=== PATIENT | male | born 1960 | race American Indian/Alaskan Native ===

== ENCOUNTER 2016-02-28 22:30 | Emergency (ER) | payer MEDICARE, OTHER ==
[2016-02-28] MEDS ORDERED: PEPCID PO ONE (23:50)
[2016-02-28] MEDS ORDERED: DUONEB 0.5 MG-3 MG/3 ML SOLN IH ONE (23:50)
--- NOTE | 2016-02-29 00:16 | XRay Report ---
FINAL REPORT PROCEDURE: XR CHEST ROUTINE 2V TECHNIQUE: PA and lateral chest radiographs were obtained. CPT 71965 HISTORY: worsening cough heavy smoker COMPARISON: No prior studies are available for comparison. FINDINGS: Heart: Normal. Mediastinum/Vessels: Normal. Lungs/Pleural space: Normal. Bony thorax: No acute osseous abnormality. Other: IMPRESSION: Normal examination.
[2016-02-29 00:23] LABS: Basophils % (Auto) 0.8 % (0.0-1.8); Hematocrit 42.2 % (35.5-45.6); Mean Corpuscular HGB Conc 36 % (32-34); Mean Corpuscular Hemoglobin 33 pg (28-32); Mean Corpuscular Volume 92 fl (84-94); Platelet Count 168 K/mm3 (140-440); Red Cell Distribution Width 15.6 % (13.2-15.2); White Blood Count 5.7 K/mm3 (4.5-11.0)
[2016-02-29 00:44] LABS: Creatine Kinase MB 2.5 ng/mL (0.0-4.0)
[2016-02-29 00:45] LABS: Alanine Aminotransferase 22 units/L (7-56); Albumin 4.1 g/dL (3.9-5); Alkaline Phosphatase 88 units/L (35-129); BUN/Creatinine Ratio 6.66; Bilirubin,Total 0.3 mg/dL (0.1-1.2); Blood Urea Nitrogen 4 mg/dL (9-20); Calcium 8.7 mg/dL (8.4-10.2); Carbon Dioxide 19 mmol/L (22-30); Creatine Kinase 109 units/L (55-170); Glucose 179 mg/dL (75-100); Sodium 140 mmol/L (137-145); Total Protein 8.2 g/dL (6.3-8.2)
[2016-02-29 00:46] LABS: Chloride 98.9 mmol/L (98-107); Potassium 3.4 mmol/L (3.6-5.0)
--- NOTE | 2016-02-29 00:51 | Emergency Department Report ---
HPI - General Chief Complaint: Sore Throat Time Seen by Provider: 02/28/16 23:15 - HPI HPI: 55-year-old male past medical history alcoholic, EtOH abuse, smoker presents with complaint of 2-3 months of worsening cough and sore throat. Patient states he has fits of coughing with mild associated chest pain which is been worsening for 2-3 months. Patient states that the coughing is also making his throat sore. Patient denies any fever or chills no nausea or vomiting. Cough is dry nonproductive. Denies any pleuritic chest pain, denies any overt shortness of breath, denies any recent travel. States he drinks heavily and smokes heavily on a daily basis for 20+ years and has not had any medical attention in over 40 years. Patient accompanied by family, son and daughter-in- law who state that they're concerned that his cough is getting worse. Patient is ambulatory without assistance, awake alert and oriented 3, does not appear to be in acute distress no audible stridor or wheezing. Patient does not appear dyspneic. ED Past Medical Hx - Past Medical History Previous Medical History?: No - Surgical History Past Surgical History?: No - Social History Smoking Status: Current Every Day Smoker Substance Use Type: Alcohol - Medications Home Medications: Home Medications Medication Instructions Recorded Confirmed Last Taken Type Famotidine [Pepcid] 40 mg PO QHS #30 tablet 11/16/12 Unknown Rx ALBUTEROL Inhaler [Proair] 1 puff IH Q4H PRN #1 inha 02/29/16 Unknown Rx Azithromycin [Zithromax Z-ADEBAYO] 250 mg PO QDAY #6 tablet 02/29/16 Unknown Rx Chlorhexidine Mouthwash [Peridex] 118 ml MM BID #1 bottle 02/29/16 Unknown Rx Clindamycin [Clindamycin CAP] 300 mg PO Q8H #30 cap 02/29/16 Unknown Rx Famotidine [Pepcid] 20 mg PO BID #20 tablet 02/29/16 Unknown Rx Lansoprazole [Prevacid] 15 mg PO QDAY #14 cap 02/29/16 Unknown Rx ED Review of Systems ROS: Stated complaint: SORE THROAT Other details as noted in HPI Constitutional: denies: chills, fever Eyes: denies: eye pain, eye discharge, vision change ENT: throat pain. denies: ear pain Respiratory: cough. denies: shortness of breath, wheezing Cardiovascular: chest pain. denies: palpitations Endocrine: no symptoms reported Gastrointestinal: denies: abdominal pain, nausea, diarrhea Genitourinary: denies: urgency, dysuria Musculoskeletal: denies: back pain, joint swelling, arthralgia Skin: denies: rash, lesions Neurological: denies: headache, weakness, paresthesias Psychiatric: as per HPI, other (patient and drinks and smokes heavily on daily basis). denies: anxiety, depression Hematological/Lymphatic: denies: easy bleeding, easy bruising Physical Exam - Physical Exam Vital Signs: Vital Signs 02/28/16 02/29/16 22:42 00:38 Temperature 97.9 F Pulse Rate 99 H Pulse Rate [ 92 H Anterior Bilateral Throughout] Respiratory 20 Rate Respiratory 18 Rate [Anterior Bilateral Throughout] Blood Pressure 133/89 O2 Sat by Pulse 96 Oximetry General: General: Patient appears slightly disheveled, well nourished, in no distress. Oriented x 3, normal mood and affect .Ambulating without difficulty. Skin: Mottled skin appearance Head: Normocephalic, atraumatic, no visible or palpable masses, depressions, or scaring. Eyes: Visual acuity intact, conjunctiva clear, sclera non-icteric, EOM intact, PERRL, fundi have normal optic discs and vessels, no exudates or hemorrhages Ears: EACs clear, TMs translucent & mobile, ossicles nl appearance, hearing intact. Nose: No external lesions, mucosa non-inflamed, septum and turbinates normal Teeth/Gums: Peritonsillar disease, gingivitis, multiple large cavities Pharynx: Mucosa mildly, no tonsillar hypertrophy or exudate Neck: Supple, without lesions, bruits, or adenopathy, thyroid non-enlarged and non-tender Heart: No cardiomegaly or thrills; regular rate and rhythm, no murmur or gallop Lungs: Clear to auscultation and percussion Abdomen: Bowel sounds normal, no tenderness, organomegaly, masses, or hernia Back: Spine normal without deformity or tenderness, no CVA tenderness Musculoskeletal: Normal gait and station. No misalignment, asymmetry, crepitation, defects, tenderness, masses, effusions, decreased range of motion, instability, atrophy or abnormal strength or tone in the head, neck, spine, ribs , pelvis or extremities. Neurologic: CN 2-12 normal. Sensation to pain, touch, and proprioception normal. DTRs normal in upper and lower extremities. No pathologic reflexes. Psychiatric: Oriented X3, intact recent and remote memory, judgment and insight , normal mood and affect. Patient clinically does not seem intoxicated, able to follow commands, cooperative, fully lucid. ED Course Vital Signs 02/28/16 02/29/16 22:42 00:38 Temperature 97.9 F Pulse Rate 99 H Pulse Rate [ 92 H Anterior Bilateral Throughout] Respiratory 20 Rate Respiratory 18 Rate [Anterior Bilateral Throughout] Blood Pressure 133/89 O2 Sat by Pulse 96 Oximetry ED Medical Decision Making - Lab Data Result diagrams: 02/28/16 23:48 02/28/16 23:49 - Medical Decision Making A/P: Sore throat, cough, chest pain 1-chest x-ray within normal limits, EKG sinus rhythm rate of 70s, troponin negative, BMP within normal limits, CBC normal limits. patient states is been ongoing for 3 months 2-patient is chronic smoker and smokes over 2 packs a day for 20+ years possibly has undiagnosed COPD which may be resulting in cough. Patient also smokes and drinks daily which may result in GERD which may also be cause of his persistent cough. Will provide patient with prescription for albuterol inhaler , Pepcid, prevacid. Z-Adebayo. 3-to give patient referral to primary care and cardiology as he does not currently have any follow-up whatsoever. Patient states he has not had any medical attention in many years. I also gave patient information for dental clinics for his periodontal disease. 4-patient and his family are educated on risks of smoking, alcohol abuse and COPD. I informed patient that he should seek out alcohol rehabilitation, his family stated that they would help him with this issue. Patient denies any history of DTs or seizures when I asked him specifically. Patient discharged to the care of his family Critical care attestation.: If time is entered above; I have spent that time in minutes in the direct care of this critically ill patient, excluding procedure time. ED Disposition Clinical Impression: Sore throat, Cough, Smoking Chest pain Qualifiers: Chest pain type: unspecified Qualified Code(s): R07.9 - Chest pain, unspecified Disposition: DISCHARGED TO HOME OR SELFCARE Is pt being admited?: No Does the pt Need Aspirin: No Condition: Stable Instructions: Chest Pain (ED), Pharyngitis (ED), Cold Symptoms (ED), Chronic Cough (ED), Gastroesophageal Reflux Disease (ED), Diet for Ulcers and Gastritis (ED) Prescriptions: Clindamycin [Clindamycin CAP] 300 mg PO Q8H #30 cap Famotidine [Pepcid] 20 mg PO BID #20 tablet Chlorhexidine Mouthwash [Peridex] 118 ml MM BID #1 bottle Lansoprazole [Prevacid] 15 mg PO QDAY #14 cap ALBUTEROL Inhaler [Proair] 1 puff IH Q4H PRN #1 inha PRN Reason: Cough Azithromycin [Zithromax Z-ADEBAYO] 250 mg PO QDAY #6 tablet Referrals: [facility] [Outside] - 3-5 Days SHERLYN ALVARES MD [Staff Physician] - 3-5 Days [facility], [Primary Care Provider] - 3-5 Days LESLEY HEREDIA MD [Staff Physician] - 3-5 Days Time of Disposition: 01:06
[2016-02-29 01:00] LABS: Anion Gap 26 mmol/L; Bilirubin,Direct < 0.2 mg/dL (0-0.2); Bilirubin,Indirect 0.1 mg/dL
[2016-02-29 01:35] VITALS: BP 141/71
== END 2016-02-29 01:20 | disposition home or self-care (01) ==
LOC: ED 22:30
DX: J02.9 Acute pharyngitis, unspecified (principal); R05 Cough; R07.9 Chest pain, unspecified; F17.200 Nicotine dependence, unspecified, uncomplicated
CPT/HCPCS: 36415; 71020; 80048; 80074; 82550; 82553; 82805; 84484; 85025; 93005; 93010; 94640; 99284; G0480; 80320

== ENCOUNTER 2016-11-15 21:43 | Emergency (ER) | payer MEDICARE ==
[2016-11-15] MEDS ORDERED: NACL 0.9% 1000 ML 1,000 ML IV ONE (23:25)
[2016-11-15] MEDS ORDERED: ZOFRAN IV ONE (23:28)
[2016-11-15] MEDS ORDERED: DECADRON IV ONE (23:29)
[2016-11-15] MEDS ORDERED: NACL 0.9% 1000 ML 1,000 ML ONE (23:31)
--- NOTE | 2016-11-15 23:38 | Emergency Department Report ---
ED General Adult HPI - General Chief complaint: Skin/Abscess/Foreign Body Stated complaint: GENERAL ILLNESS Time Seen by Provider: 11/15/16 23:20 Source: patient, EMS Mode of arrival: Ambulatory Limitations: Physical Limitation - History of Present Illness Initial comments: Patient is a 56 years old male came today with difficulty breathing and unable to speak, going on for 1 week getting worst tonight. Patient showed me a letter from [facility] from the Otolaryngology, head and neck surgery department indicating that the patient has an advanced stage laryngeal cancer and they are trying to get in touch with him for his treatment plan. Patient currently denied fever. He stated that he has been nauseated. -: Gradual, week(s) Location: head, neck - Related Data Home Medications Medication Instructions Recorded Confirmed Last Taken No Known Home Medications [No 11/15/16 11/15/16 Unknown Reported Home Medications] Allergies Allergy/AdvReac Type Severity Reaction Status Date / Time Penicillins Allergy Unknown Verified 11/16/12 04:53 ED Review of Systems ROS: Stated complaint: GENERAL ILLNESS Other details as noted in HPI Comment: All other systems reviewed and negative Constitutional: denies: chills, fever ENT: throat pain Respiratory: shortness of breath. denies: cough, orthopnea Cardiovascular: palpitations. denies: chest pain, dyspnea on exertion Gastrointestinal: nausea. denies: abdominal pain, vomiting, diarrhea, constipation, hematemesis Genitourinary: denies: dysuria, frequency, hematuria Musculoskeletal: denies: back pain Skin: denies: rash Neurological: denies: headache, weakness, paresthesias ED Past Medical Hx - Past Medical History Previous Medical History?: No Additional medical history: Advanced laryngeal cancer - Surgical History Past Surgical History?: No - Social History Smoking Status: Current Every Day Smoker Substance Use Type: Alcohol - Medications Home Medications: Home Medications Medication Instructions Recorded Confirmed Last Taken Type No Known Home Medications [No 11/15/16 11/15/16 Unknown History Reported Home Medications] ED Physical Exam - General Limitations: Physical Limitation General appearance: alert, in no apparent distress - Eye Eye exam: Present: normal appearance - ENT ENT exam: Present: normal exam, normal orophraynx, mucous membranes dry - Neck Neck exam: Present: normal inspection, full ROM. Absent: tenderness, meningismus, lymphadenopathy, thyromegaly - Respiratory Respiratory exam: Present: decreased breath sounds. Absent: respiratory distress, wheezes, rales, rhonchi, stridor - Cardiovascular Cardiovascular Exam: Present: tachycardia. Absent: systolic murmur, diastolic murmur - GI/Abdominal GI/Abdominal exam: Present: soft. Absent: tenderness, guarding, rebound, mass, bruit, pulsatile mass - Extremities Exam Extremities exam: Present: normal inspection, normal capillary refill - Back Exam Back exam: Present: normal inspection. Absent: CVA tenderness (R), CVA tenderness (L) - Neurological Exam Neurological exam: Present: alert, oriented X3, CN II-XII intact, normal gait, reflexes normal. Absent: motor sensory deficit - Skin Skin exam: Present: warm, dry, intact. Absent: cyanosis, diaphoretic, erythema , petechiae, pallor ED Course Vital Signs 11/15/16 11/15/16 11/15/16 23:02 23:07 23:15 Temperature 98.4 F Pulse Rate 119 H 116 H 122 H Pulse Rate [ Posterior Bilateral Throughout] Respiratory 36 H 36 H 32 H Rate Respiratory Rate [Posterior Bilateral Throughout] Blood Pressure 180/111 191/169 Blood Pressure 180/111 [Left] O2 Sat by Pulse 97 98 97 Oximetry 11/15/16 11/16/16 11/16/16 23:30 00:12 00:28 Temperature Pulse Rate 114 H Pulse Rate [ 108 H 112 H Posterior Bilateral Throughout] Respiratory 14 Rate Respiratory 20 23 Rate [Posterior Bilateral Throughout] Blood Pressure 150/94 Blood Pressure [Left] O2 Sat by Pulse 99 Oximetry - Reevaluation(s) Reevaluation #1: 11/16/16 01:23 Patient stated that he is feeling better. ED Medical Decision Making - Lab Data Result diagrams: 11/15/16 23:48 11/15/16 23:48 - Radiology Data Radiology results: report reviewed - Medical Decision Making Discussed with Dr. Lee from [facility], he advised patient need to be transferred to [facility] ER and he will assess the patient over there. I spoke to Dr. Morales ER physician at [facility] Critical care attestation.: If time is entered above; I have spent that time in minutes in the direct care of this critically ill patient, excluding procedure time. ED Disposition Clinical Impression: Airway compromise, Laryngeal cancer Disposition: [id number]/TX-[id number] ANOTHER TYPE HLTHCARE Is pt being admited?: No Condition: Stable Referrals: PRIMARY CARE, [Primary Care Provider] - 3-5 Days
[2016-11-15] MEDS ORDERED: S2 RACEPINEPHRINE 2.25% IH ONE (23:44)
[2016-11-15] MEDS ORDERED: XOPENEX IH ONE (23:57)
[2016-11-15] MEDS ORDERED: ATROVENT IH ONE (23:57)
[2016-11-16 00:21] LABS: Basophils % (Auto) 0.8 % (0.0-1.8); Eosinophils % (Auto) 0.4 % (0.0-4.3); Hemoglobin 14.1 gm/dl (11.8-15.2); Mean Corpuscular HGB Conc 34 % (32-34); Mean Corpuscular Hemoglobin 30 pg (28-32); Mean Corpuscular Volume 88 fl (84-94); Platelet Count 190 K/mm3 (140-440); Red Blood Count 4.67 M/mm3 (3.65-5.03); Red Cell Distribution Width 14.9 % (13.2-15.2); White Blood Count 7.7 K/mm3 (4.5-11.0)
[2016-11-16 00:29] LABS: INR 0.98 (0.87-1.13)
[2016-11-16 00:30] LABS: Partial Thromboplastin Time 28.6 Sec. (24.2-36.6)
[2016-11-16] MEDS ORDERED: NACL ONE (00:39)
[2016-11-16 00:44] LABS: Alanine Aminotransferase 43 units/L (7-56); Albumin 4.1 g/dL (3.9-5); Albumin/Globulin Ratio 0.9 %; Alkaline Phosphatase 87 units/L (35-129); Anion Gap 32 mmol/L; BUN/Creatinine Ratio 8; Blood Urea Nitrogen 6 mg/dL (9-20); Carbon Dioxide 18 mmol/L (22-30); Chloride 80.4 mmol/L (98-107); Glucose 119 mg/dL (75-100); Potassium 3.7 mmol/L (3.6-5.0); Sodium 127 mmol/L (137-145); Total Protein 8.5 g/dL (6.3-8.2)
--- NOTE | 2016-11-16 02:05 | Cat Scan Report ---
FINAL REPORT PROCEDURE: CT NECK W CON TECHNIQUE: Computerized axial tomography of the soft tissue neck was performed following the IV injection of iodinated nonionic contrast. HISTORY: Difficulty breathing, laryngeal cancer COMPARISON: No prior studies are available for comparison. FINDINGS: Skull and scalp: Normal. Paranasal sinuses: There is mucosal thickening in the left maxillary sinus. There are no air-fluid levels.. Nasopharynx: Normal . Oral cavity: Normal . Epiglottis/vallecula: Epiglottis is unremarkable. There is thickening of the right aryepiglottic fold which measures up to 2 centimeters in thickness. A mass is suspected. There narrowing of the airway but no occlusion.. Thyroid gland: Normal . Lymph nodes: There are borderline enlarged right-sided cervical lymph nodes.. Salivary glands: Normal . Upper thorax: Normal . IMPRESSION: No acute traumatic injury is identified. There is mucosal thickening in the left maxillary sinus. There are no air-fluid levels.. Epiglottis is unremarkable. There is thickening of the right aryepiglottic fold which measures up to 2 centimeters in thickness. A mass is suspected. There narrowing of the airway but no occlusion.. There are borderline enlarged right-sided cervical lymph nodes..
[2016-11-16 02:46] VITALS: BP 152/94
--- NOTE | 2016-11-16 07:46 | XRay Report ---
PORTABLE CHEST: Dyspnea An AP portable view of the chest demonstrates a normal cardiac contour considering the limits of this technique. The lungs are clear with no evidence of infiltrate, fluid or failure. No interval change compared to February 28, 2016. IMPRESSION: Normal portable chest.
== END 2016-11-16 04:46 | disposition other institution (70) ==
LOC: ED 21:43
DX: J98.8 Other specified respiratory disorders (principal); C32.9 Malignant neoplasm of larynx, unspecified; F17.200 Nicotine dependence, unspecified, uncomplicated; Z88.0 Allergy status to penicillin
CPT/HCPCS: 36415; 70491; 71010; 80053; 82140; 85025; 85610; 85730; 87040; 94640; 96361; 96374; 96375; 99285; J1100; J2405; J7030; Q9967

== ENCOUNTER 2016-11-26 08:24 | Emergency (ER) | payer MEDICARE ==
[2016-11-26] MEDS ORDERED: NACL 0.9% 1000 ML 1,000 ML IV ONE ×2 (09:23→13:33)
[2016-11-26 09:53] LABS: Basophils % (Auto) 0.6 % (0.0-1.8); Eosinophils % (Auto) 1.2 % (0.0-4.3); Hemoglobin 11.6 gm/dl (11.8-15.2); Mean Corpuscular HGB Conc 33 % (32-34); Mean Corpuscular Hemoglobin 29 pg (28-32); Mean Corpuscular Volume 87 fl (84-94); Platelet Count 334 K/mm3 (140-440); Red Blood Count 4.03 M/mm3 (3.65-5.03); Red Cell Distribution Width 14.9 % (13.2-15.2); White Blood Count 6.6 K/mm3 (4.5-11.0)
[2016-11-26 10:02] LABS: Anion Gap 20 mmol/L; BUN/Creatinine Ratio 18; Blood Urea Nitrogen 9 mg/dL (9-20); Calcium 9.7 mg/dL (8.4-10.2); Carbon Dioxide 31 mmol/L (22-30); Chloride 89.4 mmol/L (98-107); Glucose 102 mg/dL (75-100); Potassium 3.5 mmol/L (3.6-5.0); Sodium 137 mmol/L (137-145)
[2016-11-26 10:03] LABS: INR 0.93 (0.87-1.13)
[2016-11-26 10:04] LABS: Partial Thromboplastin Time 31.5 Sec. (24.2-36.6)
[2016-11-26 10:25] LABS: Albumin/Globulin Ratio 0.7 %; Bilirubin,Direct 0.3 mg/dL (0-0.2); Bilirubin,Indirect 0.3 mg/dL; Bilirubin,Total 0.6 mg/dL (0.1-1.2); Total Protein 7.5 g/dL (6.3-8.2)
--- NOTE | 2016-11-26 11:06 | XRay Report ---
Portable chest: Dyspnea. A tracheostomy tube is present. The lungs are clear. Mediastinal contours are unremarkable. Compared to prior study of November 15 the cardiopulmonary findings are unchanged but the tracheostomy tube is new. Impression: No cardiopulmonary pathology identified.
--- NOTE | 2016-11-26 13:28 | Emergency Department Report ---
ED General Adult HPI - General Chief complaint: Dyspnea/Respdistress Stated complaint: TRACHEOTOMY INFECTED Time Seen by Provider: 11/26/16 09:08 Source: patient, EMS Mode of arrival: Stretcher Limitations: Other - History of Present Illness Initial comments: The patient's states that she is early on prepared for the patient's trach care. She states that the patient was discharged from [facility] on the . She has no home suction device. She has no home health care she told me. However later on she stated to the case technician that a nurse comes once a week. In either case she says he has no equipment for the patient's trach care nor the knowledge on how to suction it out. Apparently the patient's trach was exchanged at home. environmental sampling technician tells me at this time the patient's inner cannula has had to be taken out and cleaned 3 times. He requires constant suctioning according to respiratory. At the time of my encounter the patient's is very distraught and overwhelmed. She states that she cannot handle this type of tracheostomy problem at home. The patient himself at this time was breathing unlabored although he was congested. He did not have any gross discharge from his tracheostomy that I could see at that time. However subsequent to my encounter the respiratory therapist has had to go back there several times to suction and clean the inner cannula. In addition, the neglected to tell me that the patient's feeding tube has been dislodged. She tells the case technician that the only thing that he is getting. The feeding tube is "tomato juice" and that the only thing else that he is consuming by mouth his water. -: days(s) Consistency: intermittent Improves with: none Worsens with: none - Related Data Home Medications Medication Instructions Recorded Confirmed Last Taken No Known Home Medications [No 11/15/16 11/15/16 Unknown Reported Home Medications] Allergies Allergy/AdvReac Type Severity Reaction Status Date / Time Penicillins Allergy Unknown Verified 11/16/12 04:53 ED Review of Systems ROS: Stated complaint: TRACHEOTOMY INFECTED Other details as noted in HPI Comment: All other systems reviewed and negative Gastrointestinal: other (inadequate by mouth intake) ED Past Medical Hx - Past Medical History Hx of Cancer: Yes Additional medical history: Advanced laryngeal cancer - Surgical History Past Surgical History?: Yes Additional Surgical History: Placement of trach - Social History Smoking Status: Current Every Day Smoker Substance Use Type: Alcohol - Medications Home Medications: Home Medications Medication Instructions Recorded Confirmed Last Taken Type No Known Home Medications [No 11/15/16 11/15/16 Unknown History Reported Home Medications] ED Physical Exam - General Limitations: Other General appearance: cachectic - Head Head exam: Present: atraumatic, normocephalic - Eye Eye exam: Present: normal appearance - ENT ENT exam: Present: mucous membranes moist - Neck Neck exam: Present: other (tracheostomy) - Respiratory Respiratory exam: Present: decreased breath sounds. Absent: respiratory distress - Cardiovascular Cardiovascular Exam: Present: regular rate, normal rhythm. Absent: systolic murmur, diastolic murmur, rubs, gallop - GI/Abdominal GI/Abdominal exam: Present: soft, normal bowel sounds. Absent: distended, tenderness, guarding, rebound, rigid - Rectal Rectal exam: Present: deferred - Extremities Exam Extremities exam: Present: normal inspection - Back Exam Back exam: Present: normal inspection - Neurological Exam Neurological exam: Present: alert, oriented X3, CN II-XII intact. Absent: motor sensory deficit - Psychiatric Psychiatric exam: Present: normal affect, normal mood - Skin Skin exam: Present: warm, dry, intact, normal color. Absent: rash ED Course Vital Signs 11/26/16 11/26/16 11/26/16 08:43 09:30 10:25 Temperature 98.7 F Pulse Rate 105 H Respiratory 24 Rate Blood Pressure 140/85 O2 Sat by Pulse 100 98 Oximetry O2 Sat by Pulse 98 Oximetry [ Assessment] 11/26/16 11/26/16 10:37 10:41 Temperature Pulse Rate Respiratory 24 Rate Blood Pressure O2 Sat by Pulse 100 Oximetry O2 Sat by Pulse Oximetry [ Assessment] ED Medical Decision Making - Lab Data Result diagrams: 11/26/16 09:27 11/26/16 09:27 Laboratory Results - last 24 hr 11/26/16 11/26/16 11/26/16 09:27 09:27 09:27 WBC 6.6 RBC 4.03 Hgb 11.6 L Hct 35.0 L MCV 87 MCH 29 MCHC 33 RDW 14.9 Plt Count 334 Lymph % (Auto) 9.1 L [place] % (Auto) 12.8 H Eos % (Auto) 1.2 Baso % (Auto) 0.6 Lymph # 0.6 L [place] # 0.8 Eos # 0.1 Baso # 0.0 Seg Neutrophils % 76.3 H Seg Neutrophils # 5.1 PT 12.9 INR 0.93 APTT 31.5 Sodium 137 Potassium 3.5 L Chloride 89.4 L Carbon Dioxide 31 H Anion Gap 20 BUN 9 Creatinine 0.5 L Estimated GFR > 60 BUN/Creatinine Ratio 18 Glucose 102 H Lactic Acid Calcium 9.7 Magnesium 2.00 Total Bilirubin Direct Bilirubin Indirect Bilirubin AST ALT Alkaline Phosphatase NT-Pro-B Natriuret Pep Total Protein Albumin Albumin/Globulin Ratio 11/26/16 11/26/16 09:27 09:27 WBC RBC Hgb Hct MCV MCH MCHC RDW Plt Count Lymph % (Auto) [place] % (Auto) Eos % (Auto) Baso % (Auto) Lymph # [place] # Eos # Baso # Seg Neutrophils % Seg Neutrophils # PT INR APTT Sodium Potassium Chloride Carbon Dioxide Anion Gap BUN Creatinine Estimated GFR BUN/Creatinine Ratio Glucose Lactic Acid 1.10 Calcium Magnesium Total Bilirubin 0.60 Direct Bilirubin 0.3 H Indirect Bilirubin 0.3 AST 23 ALT 19 Alkaline Phosphatase 113 NT-Pro-B Natriuret Pep 89.20 Total Protein 7.5 Albumin 3.0 L Albumin/Globulin Ratio 0.7 Critical care attestation.: If time is entered above; I have spent that time in minutes in the direct care of this critically ill patient, excluding procedure time. ED Disposition Clinical Impression: Laryngeal cancer, Unable to eat, Cachexia, Volume depletion, Metabolic alkalosis Tracheostomy complication Qualifiers: Tracheostomy complication: unspecified Qualified Code(s): J95.00 - Unspecified tracheostomy complication Dyspnea Qualifiers: Dyspnea type: unspecified Qualified Code(s): R06.00 - Dyspnea, unspecified Disposition: OP ADMIT IP TO THIS HOSP Is pt being admited?: Yes Does the pt Need Aspirin: No Condition: Stable Referrals: PRIMARY CARE, [Primary Care Provider] - 3-5 Days Time of Disposition: 13:36
[2016-11-26 14:31] VITALS: BP 160/90
[2016-11-26] MEDS ORDERED: ZOFRAN IV PRN (14:59)
[2016-11-26] MEDS ORDERED: TYLENOL PO PRN (14:59)
[2016-11-26] MEDS ORDERED: PROVENTIL IH PRN (14:59)
--- NOTE | 2016-11-26 14:59 | History and Physical Report ---
History of Present Illness Chief complaint: difficulty breathing History of present illness: 56 YO Male with Laryngeal Cancer, Respiratory Failure S/P Trach placement, nicotine Dependence presents to ED for evaluation. Pt unable to provide history , but history taken from who is at bedside. Pt states that the patient was discharged from [facility] on the and experienced shortness of breath this morning and EMS was notified. Pt found to be in respiratory distress. PT trach was changed out with improvement in symptoms. PT transported to [facility] for evaluation. Pt seen and evaluated in ED and found initially to be in respiratory distress, but symptoms improved with supportive care. Pt feeding tube also dislodged. PT states that she is not capable of performing trach care. Pt seen and evaluated in ED and is requiring frequent trach suctioning. Pt and informed of need for trach care and frequent suctioning. Pt states that she will not assist with care and that patient should have a nurse to come to the home and care for . Pt also states that he should not have undergone trach placement in the first place if he were not able to take care of it himself. Pt admitted, but left AMA prior to completion of workup and initiation of care plan, as well as PEG tube replacement. Pt and informed of risk of worsening symptoms and even , but patient and signed out AMA. Past History Past Medical History: cancer Past Surgical History: Other (Trach,) Social history: , lives with family, smoking. denies: alcohol abuse, prescription drug abuse Family history: no significant family history (reviewed) Medications and Allergies Allergies Allergy/AdvReac Type Severity Reaction Status Date / Time Penicillins Allergy Unknown Verified 11/16/12 04:53 Home Medications Medication Instructions Recorded Confirmed Last Taken Type No Known Home Medications [No 11/15/16 11/15/16 Unknown History Reported Home Medications] Active Meds: Active Medications Sodium Chloride (Nacl 0.9% 1000 Ml) 1,000 mls @ 125 mls/hr IV ONCE ONE Stop: 11/26/16 17:22 Last Admin: 11/26/16 10:12 Dose: 125 mls/hr Sodium Chloride (Nacl 0.9% 1000 Ml) 1,000 mls @ 125 mls/hr IV ONCE ONE Stop: 11/26/16 21:32 Review of Systems Constitutional: no weight loss, no weight gain Ears, nose, mouth and throat: no ear pain, no ear discharge, no tinnitis, no decreased hearing, no nose pain, no nasal congestion, no nasal discharge Cardiovascular: shortness of breath, no chest pain, no orthopnea Respiratory: other (large amounts of mucous and sputum from trach) Gastrointestinal: no abdominal pain, no nausea, no vomiting, no diarrhea, no constipation, no change in bowel habits Genitourinary Male: no dysuria, no hematuria, no flank pain, no discharge, no urinary frequency, no urinary hesitancy Rectal: no pain, no incontinence, no bleeding Musculoskeletal: no neck stiffness, no neck pain, no shooting arm pain, no arm numbness/tingling, no low back pain, no shooting leg pain Integumentary: no rash, no pruritis, no redness, no sores Neurological: no head injury, no transient paralysis, no paralysis, no weakness , no parathesias, no numbness, no tingling Psychiatric: no anxiety, no memory loss, no change in sleep habits, no sleep disturbances, no insomnia, no hypersomnia Endocrine: no cold intolerance, no heat intolerance, no polyphagia, no excessive thirst, no polydipsia, no polyuria, no nocturia Hematologic/Lymphatic: no easy bruising, no easy bleeding Allergic/Immunologic: no urticaria, no allergic rhinitis, no wheezing Exam - Constitutional Vitals: Temp Pulse Resp BP Pulse Ox 98.7 F 105 H 24 160/90 98 11/26/16 08:43 11/26/16 08:43 11/26/16 10:37 11/26/16 14:27 11/26/16 14:27 General appearance: Present: no acute distress, well-nourished - EENT Eyes: Present: PERRL ENT: hearing intact, clear oral mucosa, other (Trach in place,) - Neck Neck: Present: supple, normal ROM - Respiratory Respiratory effort: normal Respiratory: bilateral: CTA - Cardiovascular Heart Sounds: Present: S1 & S2. Absent: rub, click - Extremities Extremities: pulses symmetrical, No edema Peripheral Pulses: within normal limits - Abdominal General gastrointestinal: Present: soft, non-tender, non-distended, normal bowel sounds Male genitourinary: Present: normal - Integumentary Integumentary: Present: clear, warm, dry - Musculoskeletal Musculoskeletal: gait normal, strength equal bilaterally - Psychiatric Psychiatric: appropriate mood/affect, intact judgment & insight - Neurologic Neurologic: CNII-XII intact, moves all extremities Results - Labs CBC & Chem 7: 11/26/16 09:27 11/26/16 09:27 Labs: Abnormal lab results 11/26/16 11/26/16 11/26/16 Range/Units 09:27 09:27 09:27 Hgb 11.6 L (11.8-15.2) gm/dl Hct 35.0 L (35.5-45.6) % Lymph % (Auto) 9.1 L (13.4-35.0) % [place] % (Auto) 12.8 H (0.0-7.3) % Lymph # 0.6 L (1.2-5.4) K/mm3 Seg Neutrophils % 76.3 H (40.0-70.0) % Potassium 3.5 L (3.6-5.0) mmol/L Chloride 89.4 L (98-107) mmol/L Carbon Dioxide 31 H (22-30) mmol/L Creatinine 0.5 L (0.8-1.5) mg/dL Glucose 102 H (75-100) mg/dL Direct Bilirubin 0.3 H (0-0.2) mg/dL Albumin 3.0 L (3.9-5) g/dL Assessment and Plan - Patient Problems (1) PEG tube malfunction Status: Acute Plan to address problem: Patient signed out AMA prior to replacement attempt, or GI evaluation. (2) Accelerated hypertension Status: Acute Plan to address problem: monitor bp q shift, resume home medication (3) Nicotine dependence Status: Acute Qualifiers: Nicotine product type: N Substance use status: S Plan to address problem: Pt counseled (4) Tracheostomy complication Status: Acute Qualifiers: Tracheostomy complication: unspecified Qualified Code(s): J95.00 - Unspecified tracheostomy complication Plan to address problem: Pt and educated regarding Trach care, refuses to be involved in trach care, Pt signed out AMA.
[2016-11-26] MEDS ORDERED: D5NS 1,000 ML IV SCH (16:00)
== END 2016-11-26 15:00 | disposition left against medical advice (07) ==
LOC: ED 08:24
DX: J95.00 Unspecified tracheostomy complication (principal); R06.00 Dyspnea, unspecified; C32.9 Malignant neoplasm of larynx, unspecified; E87.3 Alkalosis; R64 Cachexia; E86.0 Dehydration; Z88.0 Allergy status to penicillin; F17.200 Nicotine dependence, unspecified, uncomplicated
CPT/HCPCS: 36415; 71010; 80048; 80074; 82140; 83735; 83880; 85025; 85610; 85730; 87040; 94760; 96360; 96361; 99285; J7030